=== PATIENT | female | born 1945 | race Caucasian/White ===

== ENCOUNTER → 2020-02-06 | Outpatient (CLI) | payer MEDICARE, OTHER ==
--- NOTE | 2020-02-06 12:21 | US ---
EXAMINATION TYPE: US carotid duplex BILAT DATE OF EXAM: 02/06/2020 COMPARISON: US 04/30/10 CLINICAL HISTORY: H53.8 OTHER VISUAL DISTURBANCES. Blurry vision x 1 mth; Hx of HTN EXAM MEASUREMENTS: RIGHT: Peak Systolic Velocity (PSV) cm/sec ----- Right CCA: 57.6 ----- Right ICA: 70.1 ----- Right ECA: 44.5 ICA/CCA ratio: 1.2 RIGHT: End Diastole cm/sec ----- Right CCA: 17.4 ----- Right ICA: 26.1 ----- Right ECA: 11.3 LEFT: Peak Systolic Velocity (PSV) cm/sec ----- Left CCA: 75.0 ----- Left ICA: 86.4 ----- Left ECA: 69.7 ICA/CCA ratio: 1.2 LEFT: End Diastole cm/sec ----- Left CCA: 24.8 ----- Left ICA: 29.5 ----- Left ECA: 17.4 VERTEBRALS (direction of flow): Right Vertebral: Antegrade Left Vertebral: Antegrade Rhythm: Normal IMPRESSION: 1. No significant hemodynamic stenosis. Intimal thickening and mild areas of focal atherosclerotic pl aque. Criteria for Assigning % of Stenosis / Diameter reduction (Estimation based on the indirect measurements of the internal carotid artery velocities (ICA PSV). 1. Normal (no stenosis)=ICA PSV < 125 cm/s: ratio < 2.0: ICA EDV<40 cm/s. 2. Less than 50% stenosis=ICA PSV < 125 cm/s: ratio < 2.0: ICA EDV<40 cm/s. 3. 50 to 69% stenosis=ICA PSV of 125 to 230 cm/s: ration 2.0 ? 4.0: ICA EDV 40-100 cm/s. 4. Greater than 70% stenosis to near occlusion= ICA PSV > 230 cm/s: ratio > 4.0: ICA EDV > 100 cm/s. 5. Near occlusion= ICA PSV velocities may be low or undetectable: variable ratio and ICA EDV. 6. Total occlusion=unable to detect flow.
--- NOTE | 2020-02-06 16:49 | ECHOF ---
Referral Reason:I10 hypertension, H53.8 blurrying MEASUREMENTS -------- HEIGHT: 165.1 cm WEIGHT: 74.8 kg BP: 1/ IVSd: 1.1 cm (0.6 - 1.1) LVIDd: 4.5 cm (3.9 - 5.3) LVPWd: 1.3 cm (0.6 - 1.1) IVSs: 1.3 cm LVIDs: 3.4 cm LVPWs: 1.7 cm LA Diam: 3.8 cm (2.7 - 3.8) RVIDd: 3.2 cm (< 3.3) LAESV Index (A-L): 24.04 ml/m Ao Diam: 3.1 cm (2.0 - 3.7) AV Cusp: 1.5 cm (1.5 - 2.6) EPSS: 0.5 cm MV E Jose A: 0.82 m/s MV DecT: 216 ms MV A Jose A: 1.00 m/s MV E/A Ratio: 0.82 RAP: 5.00 mmHg RVSP: 27.49 mmHg MV EF SLOPE: 33.63 mm/s (70 - 150) MV EXCURSION: 17.35 mm (> 18.000) FINDINGS -------- Sinus rhythm. This was a technically good study. LV size, wall thickness and systolic function are normal, with an EF greater than 55%. The left nehal tricular size is normal. The right ventricle is normal in size. The left atrial size is normal. Normal LA size by volume 22+/-6 ml/m2. The right atrial size is normal. The aortic valve is trileaflet, and appears structurally normal. No aortic stenosis or regurgitation. Mild mitral regurgitation is present. Mild tricuspid regurgitation present. Right ventricular systolic pressure is normal at < 35 mmHg. There is no pulmonic regurgitation present. The aortic root size is normal. There is no pericardial effusion. CONCLUSIONS -------- 1. LV size, wall thickness and systolic function are normal, with an EF greater than 55%. 2. The left ventricular size is normal. 3. The right ventricle is normal in size. 4. The left atrial size is normal. 5. Normal LA size by volume 22+/-6 ml/m2. 6. The right atrial size is normal. 7. Mild mitral regurgitation is present. 8. Mild tricuspid regurgitation present. EXECUTIVE COACH: Shauna Sofia RDCS
== END | disposition home or self-care (01) ==
LOC: RADECHMAIN 09:56
PROVIDERS: ATTEND Family Medicine
DX: I65.23 Occlusion and stenosis of bilateral carotid arteries (principal); I08.1 Rheumatic disorders of both mitral and tricuspid valves; I10 Essential (primary) hypertension
CPT/HCPCS: 93306; 93880

== ENCOUNTER → 2020-03-05 | Outpatient (CLI) | payer MEDICARE, OTHER ==
--- NOTE | 2020-03-05 18:43 | MR ---
EXAMINATION TYPE: MR angio head wo con DATE OF EXAM: 03/05/2020 COMPARISON: NONE HISTORY: Rt eye abnormal eye exam, stroke TECHNIQUE: Time of flight images focusing on the [place] of [place] were performed without contrast.. 2-D and 3-D postprocessing imaging is performed on the MRI scanner and reviewed. FINDINGS: Codominant vertebrobasilar system. Vertebral arteries patent to basilar junction. Small alma iber but patent bilateral posterior communicating arteries. No significant focal stenosis or aneurysm al change in the anterior circulation. Hypoplastic anterior communicating artery. Tortuous course to the left A2 segment. No significant foc al stenosis or aneurysmal change in the anterior circulation. IMPRESSION: No significant focal stenosis or aneurysmal change at the level of the [place] of [place].
--- NOTE | 2020-03-06 07:15 | MR ---
EXAMINATION TYPE: MR brain wo con DATE OF EXAM: 03/05/2020 COMPARISON: NONE HISTORY: Rt eye abnormal eye exam, stroke TECHNIQUE: Multiplanar, multisequence imaging of the brain and brainstem is performed without IV cont rast. FINDINGS: Diffusion weighted images demonstrate no evidence of a recent infarct or other diffusion abnormality. There is no worrisome extra-axial fluid collection. The ventricular system and cisternal spaces are normal in size and appearance. The brain volume is age appropriate. Scattered foci of T2 hyperintens ity are seen throughout the superficial, deep, and periventricular white matter with more confluent f indings noted near the periventricular level. Findings are nonspecific but presumed on the basis of p roduct of chronic small vessel ischemic change in patient of this age. Midline structures demonstrate normal morphology. Suprasellar cistern is maintained. The craniocervi alma junction appears within normal limits. Normal vascular flow voids are present. Some distortion at level of globes. Visualized paranasal sinuses are clear. Some increased fluid signal inferior petrou s apex noted axial image 5. IMPRESSION: 1. No MRI evidence for a recent infarct. 2. Moderate to advanced chronic small vessel ischemic changes. Possible mild left-sided petrous apici tis, correlate clinically.
== END | disposition home or self-care (01) ==
LOC: RADMRIMAIN 15:34
PROVIDERS: ATTEND Nurse Practitioner Adult Health
DX: I67.82 Cerebral ischemia (principal); H34.81 Central retinal vein occlusion
CPT/HCPCS: 70544; 70551

== ENCOUNTER → 2020-04-08 | Outpatient (CLI) | payer MEDICARE, OTHER ==
--- NOTE | 2020-04-08 11:07 | CT ---
EXAMINATION TYPE: CT iac w con DATE OF EXAM: 04/08/2020 COMPARISON: None HISTORY: Unspecified petrositis CT DLP: 150.00 mGycm Automated exposure control for dose reduction was used. CONTRAST: CT scan of the IACs is performed with IV Contrast, patient injected with 100 ml mL of Isovue 300. FINDINGS: The external auditory canals are patent bilaterally. Mastoid air cells show no evidence of abnormal opacification bilaterally. The middle ear ossicles are symmetric and unremarkable. There is no evidence of suspicious surrounding soft tissue density to suggest cholesteatoma. The scutum is preserved bilaterally. The cochlea and the semicircular canals are symmetric and unremarkable. Ves tibular aqueduct and internal carotid canal appear unremarkable. Temporomandibular joints are mainta ined bilaterally. IMPRESSION: No significant abnormality seen to account for patient's symptoms.
== END | disposition home or self-care (01) ==
LOC: RADCTMAIN 09:20
PROVIDERS: ATTEND Otolaryngology Facial Plastic Surgery
DX: H70.209 Unspecified petrositis, unspecified ear (principal)
CPT/HCPCS: 82565; 84520; 70481; 36415; Q9967

== ENCOUNTER → 2020-09-09 | Outpatient (CLI) | payer MEDICARE, OTHER ==
[2020-09-09 11:07] LABS: Ionized Calcium 5.9 mg/dL (4.5-5.3)
[2020-09-09 11:15] LABS: ALT 18 U/L (4-34); AST 24 U/L (14-36); African American GFR (CKD) 81 (>60 ml/min/1.73 sqM); Albumin 4.4 g/dL (3.5-5.0); Albumin/Globulin Ratio 1.5; Alkaline Phosphatase 87 U/L (38-126); Anion Gap 6 mmol/L; Blood Urea Nitrogen 22 mg/dL (7-17); Calcium 11.1 mg/dL (8.4-10.2); Carbon Dioxide 30 mmol/L (22-30); Chloride 103 mmol/L (98-107); Globulin 2.9 g/dL; Glucose 95 mg/dL (74-99); Non-African American GFR(CKD) 70 (>60 ml/min/1.73 sqM); Potassium 4.7 mmol/L (3.5-5.1); Sodium 139 mmol/L (137-145); Total Bilirubin 0.5 mg/dL (0.2-1.3); Total Protein 7.3 g/dL (6.3-8.2)
== END | disposition home or self-care (01) ==
LOC: LABWHC1 09:53
PROVIDERS: ATTEND Nurse Practitioner Adult Health
DX: E83.52 Hypercalcemia (principal)
CPT/HCPCS: 36415; 80053; 82330; 83970

== ENCOUNTER → 2020-09-10 | Outpatient (CLI) | payer MEDICARE, OTHER ==
--- NOTE | 2020-09-10 14:16 | CT ---
EXAMINATION TYPE: CT chest wo con DATE OF EXAM: 09/10/2020 COMPARISON: None HISTORY: Tracheal Lymphadenopathy CT DLP: [address] of the chest was performed with lung and mediastinal window settings submitted. The la ck of contrast limits evaluation of the vascular, mediastinal and parenchymal structures including th e upper abdomen. LUNGS: The lungs are clear and free of infiltrate. No atelectasis. No pulmonary nodule or mass is de tected. No pleural effusion. No CT evidence of interstitial lung disease. MEDIASTINUM/BRYAN: Thoracic aorta is of normal caliber with limited evaluation given lack of contrast . The heart is not enlarged. No evidence for mediastinal mass. No lymph nodes greater than 1cm. UPPER ABDOMEN: No significant abnormality is seen. OTHER: No significant other abnormality. IMPRESSION: 1. No adenopathy appreciated.
== END | disposition home or self-care (01) ==
LOC: RADCTMAIN 13:02
PROVIDERS: ATTEND Family Medicine
DX: R59.0 Localized enlarged lymph nodes (principal)
CPT/HCPCS: 71250

== ENCOUNTER → 2022-01-31 | Outpatient (CLI) | payer MEDICARE, OTHER ==
--- NOTE | 2022-01-31 15:31 | MR ---
EXAMINATION TYPE: MR lsbrandon/sacrum wo con DATE OF EXAM: 01/31/2022 COMPARISON: None HISTORY: Extreme low back pain for years Multiplanar multiecho imaging of the lumbar spine and sacrum without contrast. There is a thoracolumbar levo rotoscoliotic deformity. There is L2-3 lateral subluxation deformity. T he sacroiliac joints are intact. There is mild posterior multilevel spur formation of the endplates a nd small disc bulging. There is facet arthropathy with some moderate spinal stenosis at L4-5. The sacroiliac joints are inta ct. There is no evidence of lumbar paraspinal mass. The coccygeal segments have normal alignment. No fracture seen. No presacral fluid. Sacroiliac joint spaces are normal. No focal bone destruction. IMPRESSION: Lumbar scoliotic deformity with L2-3 lateral mild subluxation deformity. Multilevel moderate spondylo tic changes. Moderate spinal stenosis at L4-5. No compression fracture. No significant abnormality of the sacrum and coccyx.
== END | disposition home or self-care (01) ==
LOC: RADMRIMAIN 09:44
PROVIDERS: ATTEND Family Medicine
DX: M51.37 Other intervertebral disc degeneration, lumbosacral region (principal); M47.816 Spondylosis without myelopathy or radiculopathy, lumbar region
CPT/HCPCS: 72148; 72195

== ENCOUNTER → 2024-08-17 | Outpatient (CLI) | payer MEDICARE, OTHER ==
--- NOTE | 2024-08-17 14:30 | MR ---
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 FINDINGS: LUMBAR SPINE: Reverse S shape scoliosis lumbar spine. Extensive susceptibility artifact related to bilateral hip arthroplasties. Transitional lumbosacral segment is noted as a sacralized L5. There is moderate to severe multilevel degenerative disc disease redemonstrated with desiccation, shahrzad rowing, and bulging disks throughout. Posterior annular fissure is particularly L3-L4 and L4-L5. Alignment is maintained. Vertebral body heights are preserved. Along the sides of curvature, for example, toward the left at L1-L2, there is some edematous Modic ty pe I endplate change. Conus medullaris is normal. Severe hypertrophic facet arthropathy and multilevel ligamentum flavum thickening. Overall changes co ntribute to mild spinal canal stenosis at T12-L1 and L3-L4. Moderate spinal canal stenosis at L1-L2, L2-L3. Moderate to severe at L4-L5 with only minimal CSF signal at this level. On the right, changes result in severe neural foraminal stenosis at L1-L2 and moderate to severe at T 11-T12 and T12-L1. Moderate at L2-L3. On the left, changes result in severe neuroforaminal stenoses at L3-L4 and L4-L5. Moderate to severe at L2-L3 Partially visualized cyst of the left adrenal gland measuring 2.0 cm, probably a pseudocyst. SACRUM: The SI joints appear symmetric and intact. No subarticular erosion or abnormal edema is seen. Degenerative left L5-S1 assimilation joint probably abuts the extraforaminal left L5 nerve root. No sacral fracture is seen. No presacral soft tissue abnormality is seen. COMBINED IMPRESSION: LUMBAR SPINE: 1. Degenerated reverse S-shaped scoliosis of the lumbar spine. Transitional lumbosacral segment denot ed as a sacralized L5. 2. Similar moderate to advanced multilevel spondylotic changes. No compression collapse or malalignme nt. 3. Overall changes result in moderate to severe spinal canal stenosis at L4-L5 and moderate at both L 1-L2 and L2/L3. 4. Variable moderate and severe neuroforaminal stenoses as outlined above. SACRUM: 5. Degenerative and hypertrophied left L5-S1 assimilation joint with bony changes prominently abuttin g the extraforaminal left L5 nerve root. 6. No MRI findings of sacroiliitis or sacral fracture. [facility], Workstation: [facility], 08/17/2024 2:27 PM
== END | disposition home or self-care (01) ==
LOC: RADMRIMAIN 12:24
PROVIDERS: ATTEND Family Medicine
DX: M51.16 Intervertebral disc disorders with radiculopathy, lumbar region (principal); M51.17 Intervertebral disc disorders with radiculopathy, lumbosacral region
CPT/HCPCS: 72148; 72195

== ENCOUNTER → 2024-09-20 | Outpatient (CLI) | payer MEDICARE, OTHER ==
[2024-09-20 10:30] VITALS: BP 127/77; PULSE 69; RESP 16; TEMP 97.8
--- NOTE | 2024-09-20 15:54 | P.PAINPG ---
Objective - Vital Signs Vital signs: Intake & Output 09/19/24 09/20/24 09/20/24 18:59 06:59 18:59 Weight 72.575 kg PQRS Measure Charge Sheet Comment: HISTORY OF PRESENT ILLNESS: A 79 yr old female as a referral from [facility] presents today w severe and chronic LBP > 5 yrs secondary to Levoscoliosis, T12-L1/ L3-L4/ L4-L5 stenoses, L3-L4/ L4-L5 radiculopathy, Degenerative L SI for evaluation. Pt states pain level is provoked at 5-6 /10 in intensity, constant, localized in the lumbosacral spine, predominantly axial, dull in character w occasional shooting pain towards the R thigh and knee. Pain is provoked by walking/ sitting for period s> 15 min. Pain is alleviated by PT x 6 wks which ended in 2019 and was ineffective, physician guided home stretches daily since early Aug 2024, medications, repositioning and rest . Oswestry axial pain score at 27. PMH: OA, CAD, Hyperlipidemia, HTN, CKF III, MDD/ Anxiety PSH: BL Hip Replacement, R Knee Replacement, Hysterectomy, Sepsis (2019), Hernia Repair, Deviated Septum, Appendectomy SH: Negative x3 FH: Non contributory All: See list Meds: See list including ASA REVIEW OF ORGAN SYSTEMS: CONSTITUTIONAL: No fevers or chills. No recent weight loss. NEUROLOGICAL: + numbness and tingling along the distal extremities. No seizure disorders or headaches. MUSCULOSKELETAL: + pain PSYCHIATRIC: Denies current depression or suicidal thoughts. Physical Examinations : Constitutional : Cooperative , not in acute distress . Neurologic : Cranial nerve II to XII intact. No focal neurological deficits. Psychiatric : alert & oriented x 3. Matching mood & appropriate affect. Judgment & insight intact. Musculoskeletal : Cervical Spine Motor strength in the deltoid and biceps: Normal right side. Normal Left side Motor strength biceps and the wrist extensors: Normal right side . Normal left side Motor strength in the triceps muscle: Normal right side. Normal left side Deep tendon reflexes: Normal at the biceps. Normal at Brachioradialis. Normal at triceps Vertebral body tenderness to deep palpation over Cervical facet loading test: positive bilaterally Spurling test: positive bilaterally Neck distraction test: positive bilaterally Tomas sign: positive bilaterally Lumbar spine Motor strength lower extremities ,thigh and legs 5/5 Right side , 5/5 Left side Deep tendon reflexes : Normal Knee Jerk. Normal Ankle Jerk Vertebral body tenderness over L4 Casey Test positive R L3-L4/ L4-L5 Lumbar facet Loading Test: positive Right / positive Left Range of motion of the lumbar spine Flexion 30 degrees, extension 10 degrees Straight Leg Raise test: Left/ Right positive at degrees Cassie test: positive right / positive left. Severe tenderness over the Sacroiliac joint on the Right / Left sides Gaenslen test: positive bilaterally Seated flexion test: positive bilaterally. Sacral spine : Severe tenderness over the Sacroiliac joint: right side / left side Range of motion: Flexion of the lumbar spine <60 degrees Range of motion: Extension of the lumbar spine <20 degrees Gaenslen's Test positive Cassie test: positive right side / left side Thigh Thrust Test Sacral Thrust Test Imaging: MRI non contrast lumbosacral spine from 08/17/24 reviewed Assessment/ Plan : Levoscoliosis, T12-L1/ L3-L4/ L4-L5 stenoses, L3-L4/ L4-L5 radiculopathy, Degenerative L SI Recommendation of R TFESI L3-L4/ L4-L5 #1. Risks, benefits of procedure discussed and patient verbalized understanding. Admits to anti- coagulant use or medical history of diabetes. Protocol for discontinuation/ continuation of medications christ procedure discussed. All questions answered. I have spent greater than 30 minutes on patient care today. Dr Gupta was available by phone for the evaluation of this patient. The time was used to review the medical records including relevant urine studies and Prescription history (MAPs), review of the available imaging, evaluation and examination of the patient, coordination of care with the medical staff and if applicable referring physicians, as well as creation of the medical record - Pain Location Lower Back Non-Pharmacological Interventions: Ice Pharmacological Interventions: Topical Medication Home Medications: Ambulatory Orders diazePAM [Valium] 5 mg PO DAILY 1 Days #2 tab 09/20/24 Controlled Substance Measures - Controlled Substance Measures Is patient prescribed a controlled substance at discharge?: Yes When asked, does pt state using other controlled substances?: No If prescribed controlled substance>3 days was MAPS reviewed?: Prescribed <3 Days
== END | disposition home or self-care (01) ==
LOC: PNWHC3 10:06
PROVIDERS: ATTEND Specialist
DX: M41.86 Other forms of scoliosis, lumbar region (principal); M47.26 Other spondylosis with radiculopathy, lumbar region; E11.9 Type 2 diabetes mellitus without complications
CPT/HCPCS: 99202

== ENCOUNTER → 2024-10-30 | Outpatient (CLI) | payer MEDICARE, OTHER ==
[2024-10-30 09:59] VITALS: BP 153/79; PULSE 70; RESP 16; TEMP 97.1
--- NOTE | 2024-10-30 15:44 | P.PAINPG ---
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 Pt states she experienced % pain relief x 3 wks s/p procedure. Pt states pain level is provoked at 5-6 /10 in intensity, constant, localized in the lumbosacral spine, predominantly axial, dull in character w occasional shooting pain towards the R thigh and knee. Pain is provoked by walking/ sitting for period s> 15 min. Pain is alleviated by PT x 6 wks which ended in 2019 and was ineffective, physician guided home stretches daily since early Aug 2024, medications, repositioning and rest . Oswestry axial pain score at 27. Interventional procedures include R TFESI L3-L4/ L4-L5 x1 (10/08) Medications include ASA REVIEW OF ORGAN SYSTEMS: CONSTITUTIONAL: No fevers or chills. No recent weight loss. NEUROLOGICAL: + numbness and tingling along the distal extremities. No seizure disorders or headaches. MUSCULOSKELETAL: + pain PSYCHIATRIC: Denies current depression or suicidal thoughts. Physical Examinations : Constitutional : Cooperative , not in acute distress . Neurologic : Cranial nerve II to XII intact. No focal neurological deficits. Psychiatric : alert & oriented x 3. Matching mood & appropriate affect. Judgment & insight intact. Musculoskeletal : Cervical Spine Motor strength in the deltoid and biceps: Normal right side. Normal Left side Motor strength biceps and the wrist extensors: Normal right side . Normal left side Motor strength in the triceps muscle: Normal right side. Normal left side Deep tendon reflexes: Normal at the biceps. Normal at Brachioradialis. Normal at triceps Vertebral body tenderness to deep palpation over Cervical facet loading test: positive bilaterally Spurling test: positive bilaterally Neck distraction test: positive bilaterally Tomas sign: positive bilaterally Lumbar spine Motor strength lower extremities ,thigh and legs 5/5 Right side , 5/5 Left side Deep tendon reflexes : Normal Knee Jerk. Normal Ankle Jerk Vertebral body tenderness over L4 Casey Test positive R L3-L4/ L4-L5 Lumbar facet Loading Test: positive Right / positive Left Range of motion of the lumbar spine Flexion 30 degrees, extension 10 degrees Straight Leg Raise test: Left/ Right positive at degrees Cassie test: positive right / positive left. Severe tenderness over the Sacroiliac joint on the Right / Left sides Gaenslen test: positive bilaterally Seated flexion test: positive bilaterally. Sacral spine : Severe tenderness over the Sacroiliac joint: right side / left side Range of motion: Flexion of the lumbar spine <60 degrees Range of motion: Extension of the lumbar spine <20 degrees Gaenslen's Test positive Cassie test: positive right side / left side Thigh Thrust Test Sacral Thrust Test Imaging: MRI non contrast lumbosacral spine from 08/17/24 reviewed Assessment/ Plan : Levoscoliosis, T12-L1/ L3-L4/ L4-L5 stenoses, L3-L4/ L4-L5 radiculopathy, Degenerative L SI Will manage residual pain and may RTC on an as needed basis. All questions answered. I have spent greater than 30 minutes on patient care today. Dr Gupta was av ailable by phone for the evaluation of this patient. The time was used to review the medical records including relevant urine studies and Prescription history (MAPs), review of the available imaging, evaluation and examination of the patient, coordination of care with the medical staff and if applicable referring physicians, as well as creation of the medical record - Pain Location Bilateral Lower Back Non-Pharmacological Interventions: Home Exercise, Inactivity, Massage, Position/Reposition, Stretching, TENS Unit Pharmacological Interventions: Epidural, PRN Medication, Topical Medication PQRS Narrative: Blood Pressure 153/79 Pain Intensity [Bilateral 5 Lower Back] Scale Used Numeric (1 - 10) Hx Alcohol Use (MH) No Home Medications: Ambulatory Orders diazePAM [Valium] 5 mg PO DAILY 1 Days #2 tab 09/20/24 ALPRAZolam [Xanax] 0.5 tab PO HS 10/04/24 Aspirin [Owsley Aspirin EC] 81 mg PO DAILY 10/04/24 Atorvastatin [Lipitor] 40 mg PO DAILY 10/04/24 Cinacalcet HCl 30 mg PO DAILY 10/04/24 Losartan Potassium 100 mg PO DAILY 10/04/24 Metoprolol Succinate [Metoprolol Succinate ER] 25 mg PO DAILY 10/04/24 PARoxetine HCL [Paxil] 20 mg PO DAILY 10/04/24 amLODIPine BESYLATE 5 mg PO BID 10/04/24 Controlled Substance Measures - Controlled Substance Measures Is patient prescribed a controlled substance at discharge?: No
== END ==
LOC: PNWHC3 09:45
PROVIDERS: ATTEND Specialist
DX: M51.16 Intervertebral disc disorders with radiculopathy, lumbar region (principal); M48.061 Spinal stenosis, lumbar region without neurogenic claudication; M48.05 Spinal stenosis, thoracolumbar region; M41.9 Scoliosis, unspecified; Z88.0 Allergy status to penicillin; Z88.1 Allergy status to other antibiotic agents; Z88.5 Allergy status to narcotic agent
CPT/HCPCS: 99211

== ENCOUNTER → 2024-11-01 | Outpatient (CLI) | payer MEDICARE, OTHER ==
[2024-11-01 08:40] LABS: African American GFR (CKD) 60 (>60 ml/min/1.73 sqM); Blood Urea Nitrogen 20 mg/dL (7-17); Non-African American GFR(CKD) 52 (>60 ml/min/1.73 sqM)
--- NOTE | 2024-11-02 15:39 | CT ---
EXAMINATION TYPE: CT neck chest w con DATE OF EXAM: 11/01/2024 9:30 AM COMPARISON: None. CLINICAL INDICATION: Female, 79 years old with history of Malignant neoplasm of submandibular gland, rt submandibular mass TECHNIQUE: Axial images at 3 mm thick sections. Reconstructed images in the coronal plane and sagitt al plane are reviewed. Contrast used:80 ml mL of Isovue 300 with IV Contrast, (none if empty) Oral contrast used: (none if empty) CT DLP: combined dlp 1098.6 mGycm, Automated exposure control for dose reduction was used. FINDINGS: Limited CT sections are obtained the lung apices. The lung apices appear clear. CT neck: The torus tubarius and fossa of Rosenmuller are normal. Air Export Coordinator spaces are normal. Para nasal sinuses and mastoid air cells are clear. Submandibular glands are normal. The left parotid gland appears normal. There is a hyperdense area within the anterior right parotid gland may be an enlarged lymph node donovan uring 1.6 cm. There is a hyperdense area within the posterior right parotid gland measuring 0.4 cm. T his may be a small lymph node. There are small posterior triangle lymph nodes, example image series 2 image 44. No enlarged jugulodigastric and carotid sheath lymphadenopathy. Couple smaller jugulodiga stric nodes are present, larger on the left measuring 0.7 cm. Submental space appears normal. Submand ibular region appears normal. The hypopharynx appears within normal limits. Vocal cord level appear symmetrical. Trachea appears normal Thyroid as visualized is normal. Degenerative changes through the cervical spine. IMPRESSION: 1. Enlarged lymph node right parotid gland. Additional smaller shotty lymphadenopathy is present with in the right including an additional hyperdense small lymph node within the posterior right parotid g land. EXAMINATION TYPE: CT neck chest w con DATE OF EXAM: 11/01/2024 9:30 AM COMPARISON: None. CLINICAL INDICATION: Female, 79 years old with history of Malignant neoplasm of submandibular gland, rt submandibular mass TECHNIQUE: Axial images were obtained at 5 mm thick sections. Reconstructed images are reviewed on t he computer in the coronal plane. Contrast used:80 ml mL of Isovue 300 with IV Contrast, (none if empty) Oral contrast used: (none if empty) CT DLP: combined dlp 1098.6 mGycm, Automated exposure control for dose reduction was used. FINDINGS: Portion of the thyroid visualized is normal. Linear opacity in the posterior right base. Lung arevalo otherwise appear clear No enlarged mediastinal or hilar adenopathy is evident. The ascending aorta diameter at the level o f the main pulmonary artery is 3.3 cm. The main pulmonary artery diameter at the bifurcation is 2.8 cm. No significant coronary artery calcifications. Limited CT sections are obtained through the upper abdomen. There is a hypodense lesion within the le ft adrenal gland measuring 13 Hounsfield units. Likely angiomyolipoma. Smaller hypodense lesion is wi thin the right adrenal gland measuring 1.3 cm and 35 Hounsfield units. IMPRESSION: 1. Right lower lobe atelectasis or scarring. 2. Hypodense adrenal glands [facility], , 11/02/2024 3:36 PM
--- NOTE | 2024-11-02 15:46 | CT ---
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 Reconstructed images in the coronal plane and sagitt al plane are reviewed. Contrast used: mL of , (none if empty) Oral contrast used: (none if empty) CT DLP: combined dlp 1098.6 mGycm, Automated exposure control for dose reduction was used. FINDINGS: Limited CT sections are obtained the lung apices. The lung apices appear clear. CT neck: The torus tubarius and fossa of Rosenmuller are normal. [employer] spaces are normal. Para nasal sinuses and mastoid air cells are clear. Parotid glands appear normal and symmetrical. Submandibular glands, are normal. Within the anterior right parotid gland is ar 1.5 cm hyperdensity likely is an enlarged lymph node. A dditional workup for neoplasm is recommended. There are scattered small lymph nodes in the posterior right parotid region. Some posterior triangle lymphadenopathy is present on the right. Submandibular glands appear symmetrical and unremarkable. No specific additional suspicious enlarged lymphadenopathy is evident. The hypopharynx appears within normal limits. Vocal cord level appear symmetrical. Thyroid as visualized is normal. Osseous structures are normal. IMPRESSION: 1. Enlarged hyperdense mass within the anterior right parotid gland likely is a lymph node. Additiona l subcentimeter lymphadenopathy is posterior to the right parotid gland [facility], , 11/02/2024 3:44 PM
== END | disposition home or self-care (01) ==
LOC: RADCTMAIN 08:04
PROVIDERS: ATTEND Internal Medicine Hematology & Oncology
DX: C08.0 Malignant neoplasm of submandibular gland (principal); I10 Essential (primary) hypertension; E83.52 Hypercalcemia; D60.9 Acquired pure red cell aplasia, unspecified; M12.9 Arthropathy, unspecified; R59.1 Generalized enlarged lymph nodes; E27.8 Other specified disorders of adrenal gland
CPT/HCPCS: 82565; 84520; 70490; 70491; 71260; 36415; Q9967